=== PATIENT | female | born 1930 | race Caucasian/White ===

== ENCOUNTER 2016-07-21 18:27 | Emergency (ER) | payer OTHER, SELFPAY ==
[~2016-07-21 18:27] MED LIST: *UNABLE1; *UNABLE3; AMB10 PO; AMB5 PO; ASAB PO; ATEN25 PO; B12100T PO; C25; CINNAMON PO; DITRO5 PO; FERROUS SULFATE 50 MG PO; FISH OIL PO; FISH-EPA1000 MG PO; GLUCOPHAGE1000 MG PO; IMDUR PO; IMDUR30 PO; INDAPAMIDE1.25 MG PO; K-DUR PO; KLOR-CON 1010 MEQ PO; KLOR-CON M2020 MEQ PO; LEVOTHYROXIN88 MCG PO; LEVOXYL100 MCG PO; LEVOXYL88 MCG PO; LOZOLTAB PO; MICRO-K10 MEQ PO; MULTIPLE VIT PO; MULTIVIT/MIN PO; NEUR300 PO; NEUR400 PO; NEUR600 PO; NITRO PATCH TD; OMEGA-3 OTC PO; OMNICEF300 PO; P1 PO; P10 PO; PCET PO; PRIN5 PO; SLOW FE160 MG PO; TIMOLOL MAL0.5 % OP; TIMOPTIC0.5 % OP; TIMOPTIC0.5 % OPH; VICKS NYQUI1 OR; VITAMIN B-121000 MC1 SL; VITAMIN B-122500 MCG SL; VITC500 PO; ZOCOR10 PO; ZOCOR40 PO; [UNRECOGNIZED DRUG - OTHER]; [UNRECOGNIZED DRUG - OTHER] PO
[2016-07-22 00:36] LABS: BASOPHILS 0.3 %; BASOPHILS ABSOLUTE 0.02 10/3/uL (0.0-0.16); EOSINOPHILS 2.3 %; EOSINOPHILS ABSOLUTE 0.18 10/3/uL (0.0-0.53); HEMATOCRIT 32.8 % (36.0-48.0); HEMOGLOBIN 9.6 g/dL (12.0-16.0); IMMATURE GRANULOCYTES 0.1 %; IMMATURE GRANULOCYTES ABSOLUTE 0.01 10/3/uL (0.0-0.11); LYMPHOCYTES 37.2 %; LYMPHOCYTES ABSOLUTE 2.94 10/3/uL (0.67-4.30); MEAN PLATELET VOLUME 8.8 fL (9.2-13.0); MONOCYTES 12.4 %; MONOCYTES ABSOLUTE 0.98 10/3/uL (0.21-1.20); NEUTROPHILS 47.7 %; NEUTROPHILS ABSOLUTE 3.77 10/3/uL (2.02-8.40); PLATELET COUNT 322 10/3/uL (150-400); RBC DISTRIBUTION WIDTH 19.7 % (12.0-16.0); RED CELL COUNT 4.72 10/6/uL (4.0-5.6); WHITE BLOOD CELLS 7.9 10/3/uL (4.5-10.5)
[2016-07-22 00:38] LABS: MANUAL DIFF NO %; MEAN CORPUS HGB CONC 29.3 g/dL (32.0-36.0); MEAN CORPUSCULAR HEMOGLOB 20.3 pg (26.0-34.0); MEAN CORPUSCULAR VOLUME 69.5 fL (80-100)
[2016-07-22 00:44] LABS: INTERNATIONAL NORMAL RATI 1.7 UNITS (-); PARTIAL THROMBO TIME 34.3 SEC (22.5-37.2)
[2016-07-22 00:46] LABS: PROTIME (NOT ORD) 20.1 SEC (12.0-14.5)
[2016-07-22 00:53] LABS: BUN (BLOOD UREA NITROGEN) 9 MG/DL (6-23); CALCIUM, SERUM 8.9 MG/DL (8.5-10.4); CHEST PAIN PROFILE TAT 0 Hrs 23 Mins; CHLORIDE, SERUM 101 MMOL/L (96-112); CO2 (CARBON DIOXIDE) 28 MMOL/L (24-34); CREATININE 0.48 MG/DL (0.55-1.02); GFR AFRICAN AMERICAN 104 ML/MIN (>=60); GFR NON AFRICAN AMERICAN 90 ML/MIN (>=60); GLUCOSE, SERUM 116 MG/DL (60-99); SODIUM, SERUM 138 MMOL/L (135-148); TROPONIN I <0.02 NG/ML (<0.05)
[2016-07-22 00:55] LABS: POTASSIUM, SERUM 3.6 MMOL/L (3.5-5.3)
[2016-07-22 01:10] LABS: MICROCYTES 4+ (>50/OIF) (0-5/OIF)
[2016-09-16] MEDS ORDERED: AMARYL1 MG PO (16:16)
[2016-09-16] MEDS ORDERED: IMDUR30 PO (16:20)
[2016-09-16] MEDS ORDERED: C1 PO (16:31)
[2016-09-16] MEDS ORDERED: C5 PO (16:31)
[2016-09-16] MEDS ORDERED: TIMOLOL MAL0.5 % OPH (16:48)
== END 2016-07-22 03:06 | disposition home or self-care (01) ==
LOC: ER 18:27
PROVIDERS: Emergency Medicine
DX: I48.91 Unspecified atrial fibrillation (principal); F17.200 Nicotine dependence, unspecified, uncomplicated; R79.1 Abnormal coagulation profile; J44.9 Chronic obstructive pulmonary disease, unspecified; Z95.1 Presence of aortocoronary bypass graft; Z98.61 Coronary angioplasty status; Z88.0 Allergy status to penicillin; Z88.2 Allergy status to sulfonamides; Z79.82 Long term (current) use of aspirin
CPT/HCPCS: 80048; 83735; 84484; 85025; 85610; 85730; 93005; 99284

== ENCOUNTER 2016-09-22 11:34 | Day surgery (SDC) | payer OTHER, SELFPAY ==
[2016-09-17 09:07] LABS: BASOPHILS 0.1 %; BASOPHILS ABSOLUTE 0.01 10/3/uL (0.0-0.16); EOSINOPHILS ABSOLUTE 0.07 10/3/uL (0.0-0.53); HEMATOCRIT 29.7 % (36.0-48.0); IMMATURE GRANULOCYTES 0.1 %; IMMATURE GRANULOCYTES ABSOLUTE 0.01 10/3/uL (0.0-0.11); LYMPHOCYTES 32.8 %; LYMPHOCYTES ABSOLUTE 2.21 10/3/uL (0.67-4.30); MEAN CORPUS HGB CONC 30.3 g/dL (32.0-36.0); MEAN CORPUSCULAR HEMOGLOB 20.2 pg (26.0-34.0); MEAN CORPUSCULAR VOLUME 66.6 fL (80-100); MEAN PLATELET VOLUME 8.9 fL (9.2-13.0); MONOCYTES 10.3 %; MONOCYTES ABSOLUTE 0.69 10/3/uL (0.21-1.20); NEUTROPHILS 55.7 %; NEUTROPHILS ABSOLUTE 3.74 10/3/uL (2.02-8.40); PLATELET COUNT 328 10/3/uL (150-400); RBC DISTRIBUTION WIDTH 18.6 % (12.0-16.0); RED CELL COUNT 4.46 10/6/uL (4.0-5.6); WHITE BLOOD CELLS 6.7 10/3/uL (4.5-10.5)
[2016-09-17 09:08] LABS: MANUAL DIFF NO %
[2016-09-17 09:26] LABS: CALCIUM, SERUM 9.2 MG/DL (8.5-10.4); CHLORIDE, SERUM 103 MMOL/L (96-112); CO2 (CARBON DIOXIDE) 27 MMOL/L (24-34); CREATININE 0.45 MG/DL (0.55-1.02); GFR AFRICAN AMERICAN 107 ML/MIN (>=60); GFR NON AFRICAN AMERICAN 92 ML/MIN (>=60); GLUCOSE, SERUM 116 MG/DL (60-99); POTASSIUM, SERUM 4.1 MMOL/L (3.5-5.3); SODIUM, SERUM 138 MMOL/L (135-148)
[2016-09-17 09:27] LABS: BUN (BLOOD UREA NITROGEN) 13 MG/DL (6-23)
[2016-09-17 09:48] LABS: PLATELET ESTIMATE ADQ (ADEQUATE)
[2016-09-17 09:49] LABS: ANISOCYTOSIS 1+ (5-10/OIF) (0-5/OIF)
[2016-09-17 09:50] LABS: OVALOCYTES 1+ (3-10/OIF) (0-2/OIF)
[2016-09-17 09:58] LABS: ASCORBIC ACID (UR NOT ORDER) NEG (NEG); BILIRUBIN, URINE NEGATIVE (NEG); KETONE, URINE NEGATIVE (NEG); LEUKOCYTE ESTERASE(NOT OR NEG (NEG); WBC (NOT ORDERED) (RFLEX) 2 (0-5)
[~2016-09-22 11:34] MED LIST changes: +AMARYL1 MG PO; +C1 PO; +C5 PO; +TIMOLOL MAL0.5 % OPH
[2016-09-22 12:08] LABS: INTERNATIONAL NORMAL RATI 1.1 UNITS (-); PROTIME (NOT ORD) 13.7 SEC (12.0-14.5)
== END 2016-09-22 23:59 | disposition home or self-care (01) ==
LOC: SDC 11:34
PROVIDERS: Urology
DX: C67.9 Malignant neoplasm of bladder, unspecified (principal); Z53.8 Procedure and treatment not carried out for other reasons
CPT/HCPCS: 71020; 80048; 81001; 85025; 85610; 85730; 93005; J0690; J3010

== ENCOUNTER 2016-09-25 14:16 | Day surgery (SDC) | payer OTHER, SELFPAY ==
--- NOTE | ~2016-09-25 | OP ---
Record Of Operation [facility] [address] [id number] NAME: DORCAS WATT : 34 STATUS : [facility]#: [id number] AGE: 86 ADM/REG DATE : 09/25/16 MR#: [id number] REPORT SERV DATE: 09/26/16 DICTATED BY: MARSHAL CAMEJO III DATE: 09/25/16 REPORT STATUS : Draft TRANSCRIBED BY: MODJoseph DATE: 09/25/16 DATE OF PROCEDURE: 09/25/2016 POOR AUDIO QUALITY/CUTTING IN AND OUT PROCEDURE: Cystoscopy, dissection of two bladder tumors, largest was approximately a centimeter and a half. PREOPERATIVE DIAGNOSIS: Recurrent bladder. POSTOPERATIVE DIAGNOSIS: Recurrent bladder. ANESTHESIA: General. DESCRIPTION OF PROCEDURE: Following induction of adequate general anesthesia, the patient was placed in the dorsal lithotomy position, prepped and draped in a sterile fashion. The urethra was examined and was noted to be normal. The bladder was with 30- and 70-degree lenses and dissected 2 to 3 mm tumor there was no tumor adjacent to the orifices. The cystoscope was inserted and the tumor was shaved down into the muscle scraped off without using cautery. Cold cup biopsies were used on the small tumors. She has had low-grade tumors in the past I did not feel a deep resection was needed. The area was fulgurated and hemostasis was obtained. The patient tolerated the procedure well OB/MODL Marshal Camejo III, M.D. / [id number] CC: Skylar Pike III, M.D.
[2016-09-25 15:12] LABS: INTERNATIONAL NORMAL RATI 0.9 UNITS (-); PROTIME (NOT ORD) 11.8 SEC (12.0-14.5)
== END 2016-09-25 21:06 | disposition home or self-care (01) ==
LOC: SDC 14:16
PROVIDERS: Urology
PROC: 0TTB0ZZ Resection of Bladder, Open Approach (ICD-10-PCS; principal; 2016-09-25 15:15)
DX: C67.9 Malignant neoplasm of bladder, unspecified (principal); F17.200 Nicotine dependence, unspecified, uncomplicated; I48.91 Unspecified atrial fibrillation; E11.9 Type 2 diabetes mellitus without complications; Z95.1 Presence of aortocoronary bypass graft; Z86.73 Personal history of transient ischemic attack (TIA), and cerebral infarction without residual deficits; Z88.0 Allergy status to penicillin; Z88.2 Allergy status to sulfonamides; Z95.0 Presence of cardiac pacemaker; Z79.899 Other long term (current) drug therapy
CPT/HCPCS: 82962; 85610; 88307; A9270-GY; J2250; J2405; J3010; J9280; Q9967